=== PATIENT | male | born 1970 | race Caucasian/White ===

== ENCOUNTER 2022-01-22 23:58 | Emergency (ER) | payer SELFPAY ==
[~2022-01-22] VITALS: Ht 167.6 cm; Wt 78.5 kg
[2022-01-23 00:18] VITALS: BP_SYST 150
--- NOTE | 2022-01-23 00:25 | NUR ---
RECEIVED PT C/O POSSIBLE HYPERGLYCEMIA. PT STATED THAT HE'S BEEN DRINKING ALL DAY AND STILL FEELS DEHYDRATED. PER PT HE URINATE ATLEST EVERY 5 MINS. PER PT HEA HAS DIABETES AND STOP TAKING HIS METFORMIN 2 MOS. AGO. PT ALSO COMPLAINS OF BLURRY VISION. PER PT HE HAS THE SAME SYMPTOM WHEN HE WAS DX WITH DKA 3 YRS AGO. PMH:DM,HTN PT AAOX4, NO SOB NOTED AND NOT IN ANY DISTRESS.
--- NOTE | 2022-01-23 00:25 | NUR ---
Patient ambulatory to bed 7 for evaluation and treatment
--- NOTE | 2022-01-23 00:29 | NUR ---
ER Dr. Nelson at bedside examining patient.
[2022-01-23] MEDS ORDERED: NACL 0.9% 1,000 ML IV ONE (01:00)
[2022-01-23] MEDS ORDERED: INSULIN REGULAR, HUMAN 10 UNITS/0.1 ML INJ IVP ONE (01:00)
[2022-01-23 01:29] LABS: BASOPHILS % (AUTO) 0.4 % (0.0-2.0); EOSINOPHILS # (AUTO) 0.3 K/uL (0.0-0.4); EOSINOPHILS % (AUTO) 5.2 % (0.0-4.0); HEMATOCRIT 38.7 % (36-54); HEMOGLOBIN 13.4 g/dL (14.0-18.0); LYMPHOCYTES # (AUTO) 1.6 K/uL (1.0-5.5); LYMPHOCYTES % (AUTO) 25.3 % (20.5-51.5); MEAN CORPUSCULAR HEMOGLOBIN 31 pg (27-31); MEAN CORPUSCULAR HGB CONC 35 % (32-36); MEAN CORPUSCULAR VOLUME 89 fL (79.0-98.0); MONOCYTES # (AUTO) 0.7 K/uL (0.0-1.0); MONOCYTES % (AUTO) 11.2 % (1.7-9.3); NEUTROPHILS # (AUTO) 3.7 K/uL (1.8-7.7); NEUTROPHILS % (AUTO) 57.9 % (40.0-70.0); PLATELET COUNT (AUTO) 225 K/uL (130-430); RED BLOOD CELL COUNT(AUTO) 4.37 MIL/uL (4.2-6.2); RED CELL DISTRIBUTION WIDTH 13.2 % (9.0-15.0); WHITE BLOOD COUNT (AUTO) 6.3 K/uL (4.8-10.8)
[2022-01-23 01:46] LABS: ANION GAP 6 (5-15); CALCIUM 8.9 mg/dL (8.4-11.0); CHLORIDE 95 mmol/L (98-107); CREATININE 0.99 mg/dL (0.55-1.30); POTASSIUM 3.9 mmol/L (3.5-5.1); SODIUM SERUM 129 mmol/L (136-145); UREA NITROGEN, BLOOD 18 mg/dL (8-21)
[2022-01-23 01:51] LABS: GFR AFRICAN AMERICAN 103 mL/min (>90)
[2022-01-23 01:57] LABS: ASPARTATE AMINOTRANSFERASE 19 U/L (10-37); TOTAL BILIRUBIN 0.3 mg/dL (0.0-1.0)
[2022-01-23] MEDS ORDERED: POTASSIUM CHLORIDE 20 MEQ TAB.PRT.SR PO ONE (02:00)
[2022-01-23] MEDS ORDERED: ACETAMINOPHEN 500 MG TABLET PO ONE (02:00)
[2022-01-23] MEDS ORDERED: LORazepam 1 MG TABLET PO ONE (02:00)
[2022-01-23 02:09] LABS: GLUCOSE 474 mg/dL (70-99)
--- NOTE | 2022-01-23 02:16 | NUR ---
Blood sugar 260 notified
--- NOTE | 2022-01-23 02:17 | NUR ---
Pt C/O bilateral lower extremity cramp MD notified with order for PO potassium Order carried out
[2022-01-23] MEDS ORDERED: METF-834 PO (02:19)
[2022-01-23 02:26] LABS: ALANINE AMINOTRANSFERASE 24 U/L (12-78)
--- NOTE | 2022-01-23 02:44 | NUR ---
Patient given written and verbal discharge instructions and verbalizes understanding. ER MD discussed with patient the results and treatment provided. Patient in stable condition. ID arm band removed. IV catheter removed intact and dressing applied, no active bleeding. Patient educated on pain management and to follow up with PMD. Opportunity for questions provided and answered. Medication side effect fact sheet provided.
[2022-01-23 02:45] VITALS: BP_SYST 142
[2022-01-23 03:03] LABS: ACETONE, SERUM NEGATIVE (NEGATIVE)
== END 2022-01-23 02:44 | disposition home or self-care (01) ==
LOC: SED 23:58
DX: E11.9 Type 2 diabetes mellitus without complications (principal); F41.9 Anxiety disorder, unspecified; R35.0 Frequency of micturition; R63.2 Polyphagia; R63.1 Polydipsia; Z79.899 Other long term (current) drug therapy; Z20.822 Contact with and (suspected) exposure to COVID-19
CPT/HCPCS: 99284; 87426; 80053; 82009; 82962; 85025; 36415; 82803; 96374; 71045; 96361; 36600; J1815; J7030

== ENCOUNTER 2022-05-15 13:25 | Emergency (ER) | payer MEDICAID ==
[~2022-05-15] VITALS: Ht 170.2 cm; Wt 77.1 kg
[~2022-05-15 13:25] MED LIST: METF-834 PO
--- NOTE | 2022-05-15 13:25 | NUR ---
Patient triaged. Came into the ED because he stabbed hisself in the eye with a screwdriver. Eye is viabily swollen with ecchymosis. Small amount of dry blood noted around eye. VSS. Pain level 7/10. Placed in ED bed 5. Report given to Cindi.
[2022-05-15 13:39] VITALS: BP_SYST 147
--- NOTE | 2022-05-15 13:54 | NUR ---
Pt bib self from home CC eye injury, left eyelid is with laceration controlled bleeding, bruising, Pt complains of henger, thirs, and blurry vision. Pt has history of Diabetes 2, HTN.
--- NOTE | 2022-05-15 14:51 | NUR ---
[facility] CONTACT TO DISCUSS THE PT'S CASE W/ THE TRAUMA DR AT [facility] [place]
--- NOTE | 2022-05-15 15:00 | NUR ---
REPORT GIVEN TO BELL ROACH
--- NOTE | 2022-05-15 15:08 | NUR ---
[facility] CONTACT FOR TRANSPORT FOR THE PT.
--- NOTE | 2022-05-15 15:30 | NUR ---
MD JAVED AT BEDSIDE FOR MSE.
[2022-05-15 16:05] VITALS: BP_SYST 143
[2022-05-15 16:28] LABS: BASOPHILS % (AUTO) 0.6 % (0.0-2.0); EOSINOPHILS # (AUTO) 0.1 K/uL (0.0-0.4); EOSINOPHILS % (AUTO) 1.6 % (0.0-4.0); HEMATOCRIT 45.6 % (36-54); HEMOGLOBIN 15.4 g/dL (14.0-18.0); LYMPHOCYTES # (AUTO) 1.5 K/uL (1.0-5.5); LYMPHOCYTES % (AUTO) 20.8 % (20.5-51.5); MEAN CORPUSCULAR HEMOGLOBIN 30 pg (27-31); MEAN CORPUSCULAR HGB CONC 34 % (32-36); MEAN CORPUSCULAR VOLUME 89 fL (79.0-98.0); MONOCYTES # (AUTO) 0.6 K/uL (0.0-1.0); MONOCYTES % (AUTO) 7.9 % (1.7-9.3); NEUTROPHILS # (AUTO) 4.9 K/uL (1.8-7.7); NEUTROPHILS % (AUTO) 69.1 % (40.0-70.0); PLATELET COUNT (AUTO) 335 K/uL (130-430); RED BLOOD CELL COUNT(AUTO) 5.13 MIL/uL (4.2-6.2); RED CELL DISTRIBUTION WIDTH 12.6 % (9.0-15.0); WHITE BLOOD COUNT (AUTO) 7.1 K/uL (4.8-10.8)
[2022-05-15 16:29] LABS: CALCIUM 9.4 mg/dL (8.4-11.0); CREATININE 0.83 mg/dL (0.55-1.30)
[2022-05-15 16:35] LABS: ALBUMIN 3.9 g/dL (3.4-4.8); TOTAL BILIRUBIN 0.5 mg/dL (0.0-1.0)
[2022-05-15] MEDS: ONDANSETRON HCL 4 MG/2 ML VIAL IVP ONE (16:51)
[2022-05-15] MEDS: KETOROLAC TROMETHAMINE 15 MG VIAL IVP ONE (16:51)
[2022-05-15] MEDS: MORPHINE 4 MG INJ. 4 MG/ML VIAL IVP ONE (16:52)
[2022-05-15] MEDS: NACL 0.9% 1,000 ML IV ONE (16:52)
--- NOTE | 2022-05-15 16:58 | NUR ---
PT SIGNED AMA FORM AFTER SPEAKING WITH MD JAVED AT BEDSIDE. PT KNOWS EXTENT OF INJURY AND UNKNOWN RISKS FOR SIGNING AMA. PT WISHES TO LEAVE ANYWAY TO CHECK ON KIDS "SINGLE DAD". PT IV REMOVED. GIVEN COPIES OF LAB RESULTS, CT RESULTS AND COPY OF CT SCAN ON CD PER MD JAVED ORDERS. PT VSS. NAD NOTED. ADVISED TO GO TO [facility]. PT ACKNOWLEDGED AND STATED "HE WILL". END OF CARE.
[2022-05-15 17:01] LABS: INR 0.9 (0.80-1.20); PROTHROMBIN TIME 9.8 SECS (9.5-12.5)
--- NOTE | 2022-05-15 17:03 | NUR ---
BELL ROACH SPOKE W/ [facility] TO INFORM THEM THAT THE PT SIGNED AMA AND WILL NO LONGER BE COMING TO [facility] [place] W/ AMBULANCE.
== END 2022-05-15 16:58 | disposition left against medical advice (07) ==
LOC: SED 13:25
DX: S05.42XA Penetrating wound of orbit with or without foreign body, left eye, initial encounter (principal); S01.112A Laceration without foreign body of left eyelid and periocular area, initial encounter; E11.9 Type 2 diabetes mellitus without complications; I10 Essential (primary) hypertension; F17.200 Nicotine dependence, unspecified, uncomplicated; Z79.899 Other long term (current) drug therapy; X99.9XXA Assault by unspecified sharp object, initial encounter; Y93.89 Activity, other specified; Y92.89 Other specified places as the place of occurrence of the external cause; Y99.8 Other external cause status
CPT/HCPCS: 99285; 96374; 70481; 96375; 80053; 85025; 85610; 85730; 36415; 76376; J1885; J2405; Q9967